=== PATIENT | female | born 1980 | race Caucasian/White ===

== ENCOUNTER 2016-11-02 11:59 | Outpatient (CLI) | payer OTHER ==
--- NOTE | 2016-11-02 13:19 | DIAGNOSTIC IMAGING REPORT ---
PROCEDURE: US OB RE-EVALUATION INDICATION: F/U ANATOMY TECHNIQUE: Transabdominal simpson scale and color Doppler imaging was obtained of the gravid uterus. COMPARISON: OB ultrasound 09/14/2016 FINDINGS: Single live intrauterine is in vertex presentation. Regular heart rate at 143 beats per minute. Placenta is anterior and has a normal appearance without previa or abruption. The cervix is closed and measures 3.6 cm in length. Amniotic fluid volume is subjectively normal at 16.7 centimeters which represents approximately the 66th percentile The posterior fossa kidneys stomach diaphragm four-chambered heart and spine skin line were seen today and normal. IMPRESSION: 1. Single live intrauterine with a composite gestational age of 28 weeks and 2 days, ANA LUISA 01/23/2017. 2. Normal anatomy
[2017-01-16] MEDS ORDERED: ACETAMINOPHEN500 MG PO (10:51)
== END 2016-11-02 23:00 ==
LOC: US SRH 11:59
DX: Z34.93 Encounter for supervision of normal pregnancy, unspecified, third trimester (principal); Z3A.28 28 weeks gestation of pregnancy

== ENCOUNTER 2017-01-14 21:10 | Outpatient (CLI) | payer OTHER ==
[2017-01-16] MEDS ORDERED: ACETAMINOPHEN500 MG PO (10:51)
== END 2017-01-14 23:00 ==
LOC: LAB SRH 21:10
DX: Z01.812 Encounter for preprocedural laboratory examination (principal); Z34.83 Encounter for supervision of other normal pregnancy, third trimester
CPT/HCPCS: 90001; 90004; 90074; 90155; 95059

== ENCOUNTER 2017-01-17 06:26 | Inpatient (IN) | payer OTHER ==
--- NOTE | 2017-01-11 19:28 | HISTORY AND PHYSICAL ---
ADMITTED: 01/17/2017 CHIEF COMPLAINT: 1. Repeat section HISTORY OF PRESENT ILLNESS: The patient's ultrasound shows her to be 38 weeks 1 day on 01/11/2017. She has a problem list showing a desire for repeat section. She had a first section due to herpes outbreak 1998. She had a , spontaneous vaginal delivery, and now is desiring a repeat section. This was new father of . Questions of tubal ligation have been addressed with patient. Informed consent was given to patient. Risks and benefits were given to patient. The patient understands, accepts. section scheduled for 01/17/2017. MEDICAL/SURGICAL HISTORY: Menstrual history: Noncontributory. Obstetric history: Listed above. Past surgical history: section in 1998. Medical history: Noncontributory. MEDICATIONS: 1. Valtrex. ALLERGIES: 1. SULFA LEADS TO WELTS. 2. MORPHINE LEADS TO NAUSEA AND VOMITING. SOCIAL HISTORY: Smoking, drinking, drugs negative. FAMILY HISTORY: Noncontributory. REVIEW OF SYSTEMS: Alert and oriented x3. Genitourinary: Purpose of surgery. Cardiovascular: No shortness of breath, chest pain. Gastrointestinal: Normal bowel movements. PHYSICAL EXAMINATION: VITAL SIGNS: Normal. Vital signs stable. SKIN: Integument: Normal. HEENT: Hair Normal. HEENT: Grossly intact. BREASTS: Exam not done. LUNGS: Clear. HEART: Regular rate and rhythm. ABDOMEN: Benign, obese. EXTREMITIES: Normal. No clubbing, cyanosis, erythema, edema. PELVIC: Deferred. RECTAL: Deferred. LAB/IMAGING: Laboratories: Pending. IMPRESSION: 1. Desire for repeat section after vaginal after discussion. The patient elects repeat. PLAN: Repeat low segment transverse uterine section, tubal ligation offered, declined at this point; scar revision. Informed consent, see above. Risks and benefits.
[2017-01-17] VITALS (10 sets, daily range): BP systolic 107–126; BP diastolic 61–83
[~2017-01-17] VITALS: Ht 165.1 cm; Wt 112.5 kg
[~2017-01-17 06:26] MED LIST: ACETAMINOPHEN500 MG PO
[2017-01-17] MEDS ORDERED: ZOFRAN ODT4 MG PO (07:31)
[2017-01-17] MEDS ORDERED: CODEINE SULFATE30 MG PO (07:32)
[2017-01-17] MEDS ORDERED: ACYCLOVIR200 MG PO (07:50)
--- NOTE | 2017-01-17 11:26 | OPERATIVE REPORT ---
DATE OF SURGERY: 01/17/2017 SURGEON: Nikhil Mendoza MD SECURITY TEST ENGINEER: Sakshi Powell MD PREOPERATIVE DIAGNOSIS: 1. Previous section, for repeat. DISCHARGE DIAGNOSES: 1. Previous section, for repeat, delivered PROCEDURE PERFORMED: 1. Repeat low transverse uterine incision section and scar revision. 2. ANESTHESIA: Spinal by Zan Alexandra MD FINDINGS: Normal. COMPLICATIONS: None. CONDITION: Good. ESTIMATED BLOOD LOSS: 800 mL from placental side. Minimal from maternal side. FLUIDS: See anesthesia. DRAINS: See anesthesia, no blood transfusion, grafts or implants. PATHOLOGY SPECIMEN: Placenta to discard. SURGICAL TECHNIQUE: The patient was prepped and draped in the usual fashion. Time-out was taken. The patient had been given 2 grams of Ancef. After proper anesthesia, the scalpel was used to go superior and inferior taking a 3 cm wedge for scar revision. The fascia was then incised with the Bovie as well and then the fascial incision was carried laterally and superiorly and then dissected in the midline for good exposure for delivery of the head, the parietal peritoneum was punctured by passing the index finger through the upper part of the incision through the midline parietal peritoneum. A stretch was performed in the usual fashion for good exposure. The Jac was placed. Bovie was used to establish the lower bladder flap. Bovie was used to incise the area and the small area of bag was then opened, fluid was clear. Bandage scissors carried the incision laterally and superiorly. was delivered in the ROT position without any excessive pressure or trauma to the . The baby was quite active, crying at delivery. Suction was performed. Cord was doubly clamped and cut and cord blood was collected as the was handed off to the webmethods consultant, RT and OB nurses, good Apgars. The placenta was manually removed, coming with massage after IV Pitocin was given and active management. The uterus maintained its normal anatomic position. The placenta was removed intact. Rings were placed on the lower uterine incision site. The uterine lining was inspected for additional membranes and 0 poly was used to interlock from angle to angle and then imbricate back to the same suture with good hemostasis. The gutters were cleaned. The Jac was removed. The midline was re-approximated with the remainder of the first suture. The second suture of 0 poly was used in a running fashion reapproximation 2 cm wide, 2 cm deep, for approximation without strangulation and good reapproximation. The skin was noted to be 3 cm in depth and a 3-0 poly was used to reapproximate the tissue in a running fashion and pedro pablo were used to reapproximate the skin. Sponge, needle, tape and instrument count was correct x2. The patient tolerated the procedure well and went to the recovery room in good condition.
[2017-01-18 04:40] VITALS: BP 109/67
[2017-01-18] MEDS ORDERED: PERCOCET1 TA1 PO (08:18)
--- NOTE | 2017-01-18 08:20 | Provider's Discharge Care Plan ---
Problem, Goal, Plan Problem List 1. Status post repeat low transverse section Goals: Improve function, Increase independence Instructions: Follow up as directed, Increase activity level, Take meds as directed
--- NOTE | 2017-01-18 08:25 | Progress Note ---
Subjective General Feeling well. Tolerating PO. Voiding without difficulty. Ambulating. Minimal lochia. Pain controlled with PO meds. Physical Exam Vital Signs / I&Os Vital Signs Date Time Temp Pulse Resp B/P Pulse O2 O2 Flow FiO2 Ox Delivery Rate 01/18 0440 98.8 89 18 109/67 04/07 0030 Room Air 04/ 2343 98.4 78 18 107/69 04/06 1600 98.1 78 18 110/63 96 04/06 1419 77 18 124/70 04/06 1302 97.9 78 18 113/67 04/06 1217 83 109/61 04/06 1202 83 18 112/68 04/06 1147 77 18 108/64 04/06 1132 80 18 111/68 04/06 1117 97.5 73 18 115/70 04/06 1109 72 18 112/59 99 04/06 1100 98.4 71 20 114/59 100 04/06 1050 74 20 119/59 100 04/06 1044 110/62 04/06 1039 74 23 112/73 100 04/06 1030 72 15 122/66 100 04/06 1022 73 20 103/56 100 04/06 1017 98.2 75 23 112/61 100 I&O 04/07 0000 04/06 1600 04/06 0800 Intake Total 499 900 Output Total 400 1175 1 Balance 99 -275 -1 General Appearance Alert, Oriented X3, Cooperative, No acute distress Lungs Normal exam Cardiovascular Normal exam Abdomen Normal exam, Incision c/d/i with pedro pablo Extremities Normal exam Assessment and Plan Problem List 1. Status post repeat low transverse section Plan Percocet and Ibuprofen for pain. Increase ambulation today. May shower and wash over incision. No tub baths for 6 weeks. If desires, may be discharged home today.
[2017-01-18 08:45] VITALS: BP 97/56
[2017-01-18 13:55] VITALS: BP 100/56
[2017-01-18 16:32] VITALS: BP 103/62
== END 2017-01-18 20:40 | disposition home or self-care (01) | DRG 540 ==
LOC: OB SRH 06:26 → U SRH 08:30 → OB SRH 01-18 20:40
PROVIDERS: ADMIT Obstetrics & Gynecology
PROC: 10D00Z1 Extraction of Products of Conception, Low, Open Approach (ICD-10-PCS; principal; 2017-01-17 09:00)
DX: O34.211 Maternal care for low transverse scar from previous cesarean delivery (principal); Z37.0 Single live birth; Z3A.39 39 weeks gestation of pregnancy; O98.32 Other infections with a predominantly sexual mode of transmission complicating childbirth; A60.04 Herpesviral vulvovaginitis; O99.824 Streptococcus B carrier state complicating childbirth; Z79.899 Other long term (current) drug therapy
CPT/HCPCS: 40010; 50002; 60001; 83307; 83411; 83426; 83526; 84038; 90001; 90074; 90155; 91004; 91162; 91163; 91544